=== PATIENT | female | born 1940 | race Caucasian/White ===

== ENCOUNTER → 2018-08-23 17:17 | Outpatient (CLI) | payer MEDICARE, OTHER, SELFPAY ==
--- NOTE | 2018-08-23 18:15 | MRI_ITS ---
STUDY: MRI LUMBAR SPINE WITHOUT CONTRAST REASON FOR EXAM: Female, 78 years old. Back pain x3 years. No relief with epidural injections. TECHNIQUE: Standardized fat and water weighted pulse sequences were obtained in the sagittal and axial planes. COMPARISON: 07/14/2016. FINDINGS: T10-T11: (Sagittal only). Schmorl's nodes in the vertebral endplates. Minimal anterior wedging of T11 superior endplates may be developmental or from remote injury. Mild disc space height narrowing. No ventral extradural defect. Normal central canal and bilateral intervertebral neural foramina. T11-T12: (Sagittal only). Normal endplates. Normal disc height and morphology. No ventral extradural defect. Normal central canal and bilateral intervertebral neural foramina. T12-L1: (Sagittal only). Normal endplates. Normal disc height. Small midline ventral extradural defect is small posterior bulging disc. Normal central canal and bilateral intervertebral neural foramina. Normal lumbar lordosis. There is no substantial scoliosis. Normal conus medullaris that terminates at the T12-L1 disc level. L1-2: Normal endplates. Minimal disc space height narrowing. Small midline ventral extradural defect is small posterior bulging disc. Mild central canal stenosis with an AP canal diameter of 9.5 mm. Normal bilateral lateral recesses. Mild degenerative facet arthropathy. Normal bilateral intervertebral neural foramina. L2-3: Normal endplates. Mild disc space height narrowing. Midline ventral extradural defect is small posterior bulging disc. Mild central canal stenosis. The AP canal diameter is 10 mm. Normal bilateral lateral recesses. Mild asymmetric degenerative facet arthropathy. Left posterior ligamentum flavum hypertrophy. Normal bilateral intervertebral neural foramina. L3-4: Normal endplates. Moderate disc space height narrowing. Midline ventral extradural defect is small posterior annular bulging disc. Pronounced central canal stenosis with an AP canal diameter of 4 mm. Normal bilateral lateral recesses. Mild bilateral degenerative facet arthropathy. Normal bilateral intervertebral neural foramina. L4-5: Normal endplates. Moderate pronounced disc space height narrowing and new Schmorl's nodes in the vertebral endplates. Grade 1 degenerative anterolisthesis of L4 on L5 is new. Small posterior midline cephalad disc protrusion behind the L4 vertebral body is new. Mild to moderate central canal stenosis with an AP canal diameter of 8 mm. Pronounced left degenerative facet hypertrophy. Moderate right degenerative facet arthropathy. Prominent elliptical cyst underneath the left posterior ligamentum flavum measures 1.3 x 0.6 cm (series 5, image 9; series 2, image 7; series 4, image 7). Moderate stenosis of the right intervertebral neural foramen is a new finding. Mild stenosis of the left intervertebral neural foramen. L5-S1: Normal endplates. Mild disc space height narrowing. Normal tapered caudal termination of the central canal. Postsurgical absence of the spinous process and lamina. Normal bilateral lateral recesses. Normal facet joints. Normal bilateral intervertebral neural foramina. Normal visualized sacral ala. Normal visualized paraspinous soft tissue structures. MRI/Spine Lumbar (Routine) IMPRESSION: 1. Severe central canal stenosis at L3-L4 disc level with small posterior annular bulging disc and mild bilateral degenerative facet arthropathy. 2. 1.3 x 0.6 cm elliptical cyst underneath the left posterior ligamentum flavum just below the L4-L5 disc level. This is secondary to progression of left degenerative facet arthropathy and new grade 1 degenerative anterolisthesis of L4 on L5. This is causing mild to moderate central canal stenosis and moderate stenosis of the left lateral recesses. Additionally small posterior splenic midline cephalad disc protrusion behind the lower L4 vertebral body. These are new findings since 07/14/2016. 3. Mild central canal stenosis at L2-L3 disc level with small posterior bulging disc. 4. Mild central canal stenosis at the L1-L2 disc level and small posterior bulging disc. 5. No MRI evidence of lumbar extruded disc fragment. 6. No other additional findings or changes when compared to 07/14/2016. Electronically Signed: Dk Fagan MD at 16:06 EST , Service support ,
== END ==
PROVIDERS: Family Provider Family Medicine; PCP Family Medicine; Referring Provider Anesthesiology Pain Medicine; Visit Provider Anesthesiology Pain Medicine
DX: M54.9 Dorsalgia, unspecified (principal); M79.606 Pain in leg, unspecified
CPT/HCPCS: 72148

== ENCOUNTER → 2018-12-12 | Outpatient (CLI) | payer MEDICARE, OTHER, SELFPAY ==
--- NOTE | 2018-12-12 10:35 | RAD_ITS ---
STUDY: X-RAY - LUMBOSACRAL SPINE REASON FOR EXAM: Female, 78 years old. Back pain. TECHNIQUE: 6 view(s) of the lumbosacral spine were obtained. COMPARISON: None FINDINGS: There is a grade 1 degenerative listhesis at L4-L5. Otherwise alignment are anatomic with preservation of the lumbar lordosis. No lysis is identified on bilateral oblique views. There is gradual inferior lumbar left degenerative scoliosis with a mild associated rotatory component. Alignments appear stable on flexion and extension versus neutral lateral view. Fairly significant facet arthrosis is identified involving L3 through and including S1. There is minimal diffuse lumbar spondylosis. However, there is moderate spondylosis involving the visualized inferior thoracic vertebrae. There is moderate to severe at T10-T11 degenerative disc disease. There is mild L4-L5 degenerative disc disease. There is no evident acute osseous abnormality. Normal visualized soft tissue structures. RAD/L/S Spine Comp/w Bending Views IMPRESSION: Single level of degenerative grade 1 listhesis at L4-L5. No lysis identified on the submitted bilateral oblique views. Facet arthrosis, degenerative scoliosis, spondylosis and degenerative disc disease as discussed above. Electronically Signed: Kenji Enriquez MD at 12:47 EDT , Service support ,
== END | disposition home or self-care (01) ==
LOC: HPRAD 10:34
PROVIDERS: Family Provider Family Medicine; PCP Family Medicine; Referring Provider Orthopaedic Surgery; Visit Provider Orthopaedic Surgery
DX: M54.5 Low back pain (principal)
CPT/HCPCS: 72114

== ENCOUNTER 2020-08-01 06:25 | Day surgery (SDC) | payer MEDICARE, OTHER, SELFPAY ==
[2020-08-01 07:07] VITALS: BP 148/58; PULSE 78; RESP 16; TEMP 37.3; O2SAT 96; BMI 30.7
[2020-08-01] MEDS: Lactated Ringers 1,000 ML 100 ML IV (07:16)
--- NOTE | 2020-08-01 08:20 | RAD_ITS ---
PROCEDURE: Spinal cord stimulator insertion. DATE OF EXAMINATION: 08/01/2020 INDICATION: Female, 80 years old. Chronic back pain. FLUOROSCOPY TIME (if supplied): (8 minutes and 27 seconds) minutes/seconds. 2 images were obtained. Intraoperative imaging provided for insertion of the spinal cord stimulator. The tip of the electrode is at the T7-T8 level. RAD/Thoracic Spine 2 Views IMPRESSION: Intraoperative imaging provided for spinal cord stimulator. Electronically Signed: Wilman Bello, at 14:15 EST , Service support ,
[2020-08-01] MEDS: Bupiv/Epi 0.25% 30 ML Vial (08:48)
[2020-08-01] MEDS: Lidocaine 0.5% (50 ml) 50 ML Vial (08:48)
[2020-08-01 10:15] VITALS: BP 148/58; BP 156/71; PULSE 77; RESP 16; TEMP 36.3; O2SAT 97
[2020-08-01 10:30] VITALS: BP 148/58; BP 153/70; PULSE 70; RESP 16; O2SAT 94
[2020-08-01 10:45] VITALS: BP 148/58; BP 155/66; PULSE 65; RESP 16; O2SAT 100
[2020-08-01 11:00] VITALS: BP 148/58; BP 160/70; PULSE 65; RESP 16; TEMP 36.1; O2SAT 96
[2020-08-01 12:06] VITALS: BP 141/66; BP 148/58; PULSE 69; RESP 16; TEMP 36.7; O2SAT 95
== END 2020-08-01 12:10 | disposition home or self-care (01) ==
LOC: SDC 06:25 → AC 06:26
PROVIDERS: PCP Internal Medicine; Referring Provider Anesthesiology Pain Medicine; Visit Provider Anesthesiology Pain Medicine
PROC: (CPT 63685; principal; 2020-08-01 08:05)
DX: M51.17 Intervertebral disc disorders with radiculopathy, lumbosacral region (principal); G89.29 Other chronic pain; M54.5 Low back pain; M96.1 Postlaminectomy syndrome, not elsewhere classified; I10 Essential (primary) hypertension; G25.81 Restless legs syndrome; E78.00 Pure hypercholesterolemia, unspecified; Z79.899 Other long term (current) drug therapy; Z20.828 Contact with and (suspected) exposure to other viral communicable diseases
CPT/HCPCS: 01936; 63650 ×2; 72070; 76000; 87426; C1713; C1778; C9803; J7120; J0610; J2405; J3490

== ENCOUNTER → 2022-03-04 | Outpatient (CLI) | payer MEDICARE, OTHER, SELFPAY ==
--- NOTE | 2022-03-04 14:00 | RAD_ITS ---
STUDY: X-RAY - LEFT KNEE REASON FOR EXAM: Female, 82 years old. Knee pain. TECHNIQUE: 2 view(s) of the knee. COMPARISON: None. FINDINGS: Osteopenia. Moderate arthrosis of the medial and lateral femorotibial compartments with osteophytes. Mild arthrosis of the patellofemoral compartment with small osteophytes. Small suprapatellar joint effusion with at least one intra-articular osteochondral body projected laterally measuring approximately 8 mm in widest diameter. The soft tissue structures are otherwise unremarkable. RAD/Knee 1 or 2 Views IMPRESSION: Osteopenia with tricompartmental arthrosis. Small joint effusion with 8 mm in diameter intra-articular osteochondral body as described. No acute abnormality, chondrocalcinosis or erosive changes. Electronically Signed: Nathanael Ribeiro MD at 9:51 EDT ,
== END | disposition home or self-care (01) ==
LOC: RAD 13:57
PROVIDERS: PCP Internal Medicine; Referring Provider Anesthesiology Pain Medicine; Visit Provider Anesthesiology Pain Medicine
DX: M17.12 Unilateral primary osteoarthritis, left knee (principal)
CPT/HCPCS: 73560

== ENCOUNTER → 2022-08-11 | Outpatient (CLI) | payer MEDICARE, OTHER, SELFPAY ==
--- NOTE | 2022-08-11 10:48 | MRI_ITS ---
STUDY: MRI LUMBAR SPINE WITHOUT CONTRAST REASON FOR EXAM: Female, 82 years old. RADICULOPATHY pain low back and bilat legs, 2 prev lumbar surgeries, and spinal cord stimulator TECHNIQUE: Standardized fat and water weighted pulse sequences were obtained in the sagittal and axial planes. COMPARISON: X-ray the lumbar spine dated DECEMBER 12, 2018. MRI of the lumbar spine dated August 23, 2018. FINDINGS: Normal lumbar lordosis. There is a levoscoliosis of the lumbar spine. Normal conus medullaris that terminates at the L1 level. No marrow edema or fractures or compression deformities are present. T12-L1: Diffuse disc desiccation with mild disc space narrowing and mild annular bulging. Mild facet joint hypertrophy. Mild anterior endplate spurring. Normal central canal and bilateral lateral recesses. Normal bilateral intervertebral neural foramina. L1-2: Diffuse disc desiccation with mild disc space narrowing and mild annular bulging. Mild facet joint hypertrophy. Mild anterior endplate spurring. Normal central canal and bilateral lateral recesses. Normal bilateral intervertebral neural foramina. L2-3: Diffuse disc desiccation with mild posterior disc space narrowing but no bulging or herniation of the disc. Mild facet joint hypertrophy. Minimal retrolisthesis less than 2 mm. Mild anterior endplate spurring. Normal central canal and bilateral lateral recesses. Normal bilateral intervertebral neural foramina. L3-4: Diffuse disc desiccation with moderate disc space narrowing and a diffuse disc bulge. Mild anterior endplate spurring. Mild to moderate central canal stenosis primarily due to moderate facet joint and ligamenta flava hypertrophy. Mild bilateral foraminal stenosis. L4-5: Right chronic L4 pars interarticularis defect with anterolisthesis of L4 and L5 of 8.1 mm. Moderate to severe right foraminal stenosis with nerve root compression is also present. Moderate left foraminal stenosis with nerve root compression. Moderate bilateral facet joint hypertrophy and degeneration. Severe disc space narrowing with diffuse disc bulging. Small to moderate size Schmorl''s node and mild endplate spurring and MODIC endplate degenerative signal. Severe central canal stenosis is present primarily due to moderate to severe facet joint hypertrophy. L5-S1: Posterior surgical decompressive defect with overlying scarring in the soft tissues. Diffuse disc desiccation with mild disc space narrowing and a shallow left paracentral disc protrusion. Mild left facet joint hypertrophy. Normal bilateral intervertebral neural foramina. Normal visualized sacral ala. Normal visualized paraspinous soft tissue structures. MRI/Spine Lumbar (Routine) IMPRESSION: 1. Multilevel degenerative changes, as described above. 2. Severe central canal stenosis at L4-L5 3. 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 Moderate to severe bilateral foraminal stenosis with nerve root compression at L4-L5 Electronically Signed: Hesham Lemus MD at 11:18 EST ,
== END | disposition home or self-care (01) ==
LOC: MRI 10:42
PROVIDERS: PCP Internal Medicine; Referring Provider Anesthesiology Pain Medicine; Visit Provider Anesthesiology Pain Medicine
DX: M54.16 Radiculopathy, lumbar region (principal)
CPT/HCPCS: 72148

== ENCOUNTER → 2023-06-02 | Outpatient (CLI) | payer MEDICARE, OTHER, SELFPAY ==
--- NOTE | 2023-06-02 17:56 | RAD_ITS ---
EXAM: XR BILATERAL HIPS WITH PELVIS WHEN PERFORMED, 2 VIEWS CLINICAL INDICATION: PAIN TECHNIQUE: Frontal view of the bilateral hips with pelvis when performed. COMPARISON: No relevant prior studies available. FINDINGS: BONES/JOINTS: Joint spaces are maintained. Sacroiliac joint is unremarkable. No widening of the pubic symphysis. No acute or healing fracture or malalignment. No osteonecrosis. No other unusual lytic or sclerotic lesions of bone. SOFT TISSUES: Soft tissues are normal. No soft tissue swelling or gas. VASCULATURE: Multiple phlebolith in the pelvis. RAD/Hips B/L min 2 views w/ Pelvis IMPRESSION: 1. No acute osseous abnormalities or malalignment. 2. No findings to explain pain. Electronically Signed: Boubacar Sauceda MD at 4:40 EDT ,
== END | disposition home or self-care (01) ==
LOC: RAD 17:52
PROVIDERS: PCP Internal Medicine; Visit Provider Anesthesiology Pain Medicine
DX: M25.551 Pain in right hip (principal); M25.552 Pain in left hip
CPT/HCPCS: 73521

== ENCOUNTER → 2024-01-06 | Outpatient (CLI) | payer MEDICARE, OTHER, SELFPAY ==
--- NOTE | 2024-01-06 15:34 | MRI_ITS ---
STUDY: MRI LUMBAR SPINE WITHOUT CONTRAST REASON FOR EXAM: Female, 83 years old. Postlaminectomy syndrome, not elsewhere classified TECHNIQUE: Standardized fat and water weighted pulse sequences were obtained in the sagittal and axial planes. COMPARISON: None FINDINGS: T12-L1: Normal endplates. Narrowed disc space with desiccation of the disc and small central disc protrusion. Normal bilateral facet joints. Mild narrowing of the central canal. Normal bilateral lateral recesses. Normal bilateral intervertebral neural foramina. Normal lumbar lordosis. There is no substantial scoliosis. Normal conus medullaris that terminates at T12-L1 L1-2: Normal endplates. Narrowed disc space with desiccation of disc and mild annular bulge.. Mild facet arthropathy and thickening of ligamenta flava. Normal central canal and bilateral lateral recesses. Moderate bilateral neural foraminal encroachment. . L2-3:: Normal endplates. Normal disc height, desiccation and minor annular bulge. Normal bilateral facet joints. Normal central canal and bilateral lateral recesses. Mild bilateral neural foraminal encroachment L3-4: Normal endplates. Narrowed disc space height with desiccation of the disc and minor annular bulge. Facet arthropathy and thickening of ligamenta flava. Mild narrowing central canal and moderate bilateral lateral recess stenosis.. Severe bilateral neural foraminal stenosis exaggerated by shortened pedicles. L4-5: Grade 1 spondylolisthesis. Narrowed disc space with mild bulging disc osteophyte complex and right foraminal disc protrusion. Moderate narrowing of central canal and severe bilateral lateral recess stenosis and moderate to severe narrowing of the left nerve root foramen and severe narrowing on the right exaggerated by shortened pedicles. L5-S1: Postop change status post bilateral laminectomy Normal endplates. Normal disc height, desiccation and normal morphology. Facet arthropathy.. Mildly narrowed central canal due to soft tissue thickening posteriorly. Bilateral lateral recesses. Normal bilateral intervertebral neural foramina. Normal visualized sacral ala. Normal visualized paraspinous soft tissue structures. MRI/Spine Lumbar (Routine) IMPRESSION: No evidence for acute fracture or other significant bony pathology. Postop changes at L5-S1 status post bilateral laminectomy Spondylosis and multilevel spinal stenosis secondary to disc disease and bony hypertrophy most severe at L4-5 greater on the right and L3-4 exaggerated by shortened pedicles Electronically Signed: Larry Avalos MD at 17:35 EDT ,
== END | disposition home or self-care (01) ==
LOC: MRI 15:28
PROVIDERS: PCP Internal Medicine; Referring Provider Anesthesiology Pain Medicine; Visit Provider Anesthesiology Pain Medicine
DX: M54.18 Radiculopathy, sacral and sacrococcygeal region (principal); M96.1 Postlaminectomy syndrome, not elsewhere classified
CPT/HCPCS: 72148

== ENCOUNTER 2024-04-21 10:06 | Emergency (ER) | payer MEDICARE, OTHER, SELFPAY ==
[2024-04-21 10:06] VITALS: BP 136/75; PULSE 77; RESP 16; TEMP 36.3; O2SAT 96; BMI 27.1
--- NOTE | 2024-04-21 10:21 | RAD_ITS ---
INDICATION: swelling EXAMINATION/TECHNIQUE: X-RAY - LEFT XR Foot Min 3 Views 3 VIEWS COMPARISON: No relevant prior comparison study available FINDINGS: SOFT TISSUES: No soft tissue swelling or gas. No radiopaque foreign body. BONES/JOINTS: No acute fracture or subluxation.. Very small plantar calcaneal spur. Preservation of the joint space.. No sclerotic or destructive changes observed. RAD/Foot min 3 Views IMPRESSION: No evidence of acute fracture no evidence of acute fracture. Electronically Signed: Umesh Jang MD at 11:19 EDT ,
--- NOTE | 2024-04-21 10:21 | ED.VIS.LOWEX ---
HPI History of Present Illness Chief Complaint: Lower Extremity Injury Informant: patient and family Narrative Narrative: 84-year-old female presenting to the emergency room with left foot hematoma. Patient states she woke this morning went to put on her shoes and socks and noticed a large bruise on the dorsum of her foot. She does not recall any injuries. She notes she has chronic back pain and has paresthesias in the toes bilaterally. She denies any antiplatelet or anticoagulants. She denies any ankle symptoms. She does not have bruising anywhere else. She does note the bleeding from the gums when she brushes her teeth. No known blood dyscrasias. PFSH PFSH Home Medications ?Medication ?Instructions ?Recorded ?Last Taken ?Type gabapentin 400 mg capsule 400 mg PO QHS pain 06/05/16 Unknown History lisinopril 10 0.5 tab PO DAILY htn 06/05/16 Unknown History mg-hydrochlorothiazide 12.5 mg tablet simvastatin 20 mg tablet 20 mg PO QHS cholesterol 06/05/16 Unknown History ibuprofen 200 mg capsule 200 mg PO PRN PRN pain 07/29/20 Unknown History Allergy/AdvReac Type Severity Reaction Status Date / Time No Known Allergies Allergy Verified 04/21/24 10:06 Social History Smoking Status: Never smoker ROS ROS ED Constitutional Constitutional ED: Denies chills or weight loss Eyes Eyes: Denies change in vision or diplopia ENT ENT ED: Denies ear pain, rhinorrhea or sore throat Cardiovascular Cardiovascular: Denies chest pain, orthopnea, palpitations or racing heartbeat Respiratory/Chest Respiratory/Chest: Denies cough, dyspnea or orthopnea Gastrointestinal Gastrointestinal: Denies abdominal pain, diarrhea, nausea or vomiting Genitourinary Genitourinary ED: Denies dysuria, hematuria or urinary frequency Musculoskeletal Musculoskeletal: Reports other Details: Left foot hematoma ; Denies arthralgias or myalgias Integumentary Denies abscess or rash Neurologic Neurologic: Denies headache(s) or weakness Psychiatric Psychiatric: Denies anxiety, depression, suicidal ideation or suicidal thoughts Endocrine Endocrinology: Denies polydipsia, polyphagia or polyuria Allergic/Immunologic Allergic/Immunologic ED: Denies mouth swelling, tongue swelling or urticaria EXAM Physical Exam Const Vital Signs: 04/21/24 10:06 Temperature 97.4 F L Temperature Source Temporal Pulse Rate 77 Respiratory Rate 16 Blood Pressure 136/75 H Blood Pressure Mean 95 Pulse Ox 96 Oxygen Delivery Method Room Air Positive well nourished and well developed General Appearance ED: well developed and NAD HEENT Reports normocephalic, head/scalp atraumatic and moist mucous membranes Eyes PERRL and EOMs intact bilaterally Neck no lymphadenopathy, supple and no JVD Resp normal respiratory effort and clear to auscultation bilaterally Cardio regular rate, regular rhythm and no murmurs GI normal to inspection, nondistended, normoactive bowel sounds and non-tender Palpation: soft Back/Spine no CVA tenderness and normal ROM Extremity Extremity Narrative: Dorsum of left midfoot is a large purple hematoma. Distally the toes appear normal with no swelling or ecchymosis normal capillary refill. Strong posterior tibial pulse. No fibular head tibial shaft or ankle tenderness/swelling. General Extremety ED: Negative for edema General Extremity: Negative for edema Neuro oriented x3 and CN's II-XII intact bilaterally Sensorium / Orientation: alert Motor Exam: strength 5/5 throughout Psych mental status grossly normal Mood & Affect: Negative for depressed or tearful Skin no rashes or lesions noted and no wounds Skin Narrative: No significant bruising noted on elsewhere on body MDM MDM MDM Narrative Medical decision making narrative: Differential diagnosis includes fracture sprain strain rupture of blood vessel hematoma contusion neurovascular compromise My independent interpretation of plain films of the left foot is no obvious fracture. Dorsal soft tissue swelling noted. Patient will be treated conservatively would recommend ice. Bar wrap today. She should expect slow resolution of symptoms. I suspect that some mild trauma may have ruptured a vein on the dorsum of her foot. Patient is comfortable with this plan follow-up as needed return if worsening History & Record Review Discussion w/independent historian: Patient and Family Radiography Diagnostic Testing: Clinical Impression(s) from Imaging Studies Foot X-Ray 04/21/24 10:21 IMPRESSION: No evidence of acute fracture no evidence of acute fracture. Electronically Signed: Umesh Jang MD at 11:19 EDT , Discharge Plan Triage Chief Complaint: Lower Extremity Injury ED Provider: Neal Valenzuela Dx/Rx/DC Orders Clinical Impression: Hematoma of left foot Instructions: ED Hematoma Prescriptions: No Action gabapentin 400 MG capsule 400 mg PO QHS simvastatin 20 MG tablet 20 mg PO QHS lisinopril-hydrochlorothiazide 1 TABLET tablet 0.5 tab PO DAILY ibuprofen 200 MG capsule 200 mg PO PRN PRN (Reason: pain) Primary Care Provider: Raheem Luevano Referrals: Raheem Luevano MD [Primary Care Provider] - As Needed Activity Restrictions/Additional Instructions: I would recommend ice today. This will most likely take 2 to 3 weeks to fully resolve. You can expect to have the coloring of the hematoma change. You may begin to notice some swelling or some bruising extending over the sides and down towards the toes. Print Language: Slovak Disposition Disposition: Home, Self Care
[2024-04-21 11:32] VITALS: BP 144/74; PULSE 68; RESP 16; TEMP 36.7; O2SAT 96
== END 2024-04-21 11:33 | disposition home or self-care (01) ==
LOC: ED 11:15
PROVIDERS: Emergency Provider Emergency Medicine; PCP Internal Medicine; Visit Provider Emergency Medicine
DX: S90.32XA Contusion of left foot, initial encounter (principal); G89.29 Other chronic pain; M54.9 Dorsalgia, unspecified; R20.2 Paresthesia of skin; X58.XXXA Exposure to other specified factors, initial encounter
CPT/HCPCS: 73630; 99282

== ENCOUNTER 2024-10-20 16:04 | Emergency (ER) | payer MEDICARE, OTHER, SELFPAY ==
[2024-10-20 16:05] VITALS: BP 148/76; PULSE 86; RESP 18; TEMP 35.7; O2SAT 97
--- NOTE | 2024-10-20 16:23 | ED.VIS.LOWEX ---
HPI History of Present Illness HPI Narrative: Patient presents with a right ankle injury that occurred today. Patient states she was walking and her right leg gave out. Patient states she fell down 1-2 steps. Patient denies any head injury or loss of consciousness. Patient states her pain is worse with weightbearing. Patient describes it as aching. Patient states her ankle feels weak but she is able to move her ankle. Patient denies any paresthesias. Patient denies any popping or snapping sensation. Patient denies any other injuries. Chief Complaint: Lower Extremity Injury Informant: patient Occured/Mechanism Mechanism/Context: Yes fall Onset/Context/Timing Onset: Today Context: Sudden Onset Timing: Continuous Quality of Pain: Aching Location: Right ankle Worsened by: Weightbearing Relieved by: Nothing Associated Symptoms Associated Symptoms: Positive for Weakness; Negative for Parasthesia or Loss of Funtion [facility] Medical History (Updated 10/20/24 @ 18:[address] Barrera Balderas, ) Chronic back pain Home Medications ?Medication ?Instructions ?Recorded ?Last Taken ?Type gabapentin 400 mg capsule 400 mg PO QHS pain 06/05/16 Unknown History lisinopril 10 0.5 tab PO DAILY htn 06/05/16 Unknown History mg-hydrochlorothiazide 12.5 mg tablet simvastatin 20 mg tablet 20 mg PO QHS cholesterol 06/05/16 Unknown History ibuprofen 200 mg capsule 200 mg PO PRN PRN pain 07/29/20 Unknown History hydrocodone-acetaminophen 5-325mg 1 tab PO Q6H PRN PRN Pain 3 days 10/20/24 Unknown Rx 5mg-325mg #10 TABLETS Allergy/AdvReac Type Severity Reaction Status Date / Time No Known Allergies Allergy Verified 10/20/24 16:05 Surgical History (Updated 10/20/24 @ 16:[address] Barrera Balderas, DO) Hx of neck surgery History of back surgery S/P insertion of spinal cord stimulator Hx of cholecystectomy Social History Smoking Status: Never smoker ROS ROS ED Constitutional Constitutional ED: Denies chills or fever(s) Eyes Eyes: Denies blurry vision or change in vision ENT ENT ED: Denies rhinorrhea or sore throat Cardiovascular Cardiovascular: Denies chest pain or palpitations Respiratory/Chest Respiratory/Chest: Denies cough or dyspnea Gastrointestinal Gastrointestinal: Denies nausea or vomiting Genitourinary Genitourinary ED: Denies dysuria or hematuria Musculoskeletal Musculoskeletal: Reports back pain; Denies neck pain Integumentary Denies abscess or rash Neurologic Neurologic: Denies headache(s) or weakness Allergic/Immunologic Allergic/Immunologic ED: Denies mouth swelling or urticaria EXAM Physical Exam Const Vital Signs: 10/20/24 16:05 Temperature 96.2 F L Temperature Source Temporal Pulse Rate 86 Respiratory Rate 18 Blood Pressure 148/76 H Blood Pressure Mean 100 Pulse Ox 97 Oxygen Delivery Method Room Air Positive well nourished and well developed General Appearance ED: well developed and NAD HEENT Reports moist mucous membranes Neck full ROM and supple Extremity Extremity Narrative: There is tenderness and mild edema and ecchymosis over the lateral malleolus of the right ankle. There is no obvious deformity noted. There is no bony crepitance or step-off. There is no tenderness over the proximal fibula. There is no tenderness over the fifth metatarsal. Range of motion was slightly limited in all motions of the right ankle secondary to pain. Pedal pulses are equal bilaterally. Sensation was intact to light touch in all digits. Capillary refill was less than 2 seconds in all digits. Neuro oriented x3, CN's II-XII intact bilaterally, moves all extremities and no sensory deficits noted Sensorium / Orientation: alert Motor Exam: strength 5/5 throughout Psych mental status grossly normal MDM MDM MDM Narrative Medical decision making narrative: Differential diagnosis includes fracture, sprain, and contusion. X-rays of the right ankle will be obtained to assess for fracture. Radiography Diagnostic Testing: Clinical Impression(s) from Imaging Studies Ankle X-Ray 10/20/24 16:31 IMPRESSION: Nondisplaced spiral fracture through the distal fibula. Reading Location: [facility] X-rays of the right ankle were obtained. There are 3 views. On my independent interpretation, there is a nondisplaced spiral fracture through the distal fibula. Radiologist also interpreted the x-ray and agrees. Treatment and Re-Evaluation Narrative: Patient was advised of her findings. Patient was given a dose of Wilmot here. Case was discussed with Dr. Winters. He recommended placing the patient in a boot orthosis. He recommended to have the patient elevate her foot. Will follow-up with the patient in the outpatient office. Patient was given a prescription for a short course of Wilmot. Patient and family understood and were agreeable with plan. All questions were answered. Discharge Plan Triage Chief Complaint: Lower Extremity Injury ED Provider: Barrera Balderas Dx/Rx/DC Orders Clinical Impression: Fracture of distal end of right fibula, Fall Instructions: ED Ankle Fracture, Distal Fibula Prescriptions: New hydrocodone-acetaminophen 5-325 mg tablet 1 tab PO Q6H PRN PRN (Reason: Pain) 3 Days Qty: 10 0RF No Action gabapentin 400 MG capsule 400 mg PO QHS simvastatin 20 MG tablet 20 mg PO QHS lisinopril-hydrochlorothiazide 1 TABLET tablet 0.5 tab PO DAILY ibuprofen 200 MG capsule 200 mg PO PRN PRN (Reason: pain) Primary Care Provider: Raheem Luevano Referrals: Larry Winters DPM [Med Staff - Active Staff] - 3-5 Days Raheem Luevano MD [Primary Care Provider] - Activity Restrictions/Additional Instructions: Keep your leg elevated as much as possible. Use ice to the area. Print Language: [place] Disposition Disposition: Home, Self Care
--- NOTE | 2024-10-20 16:31 | RAD_ITS ---
PROCEDURE: ANKLE MIN 3 VIEWS REASON FOR EXAM: Injury/pain TECHNIQUE: 3 views of the right ankle COMPARISON: None FINDINGS: Spiral fracture through the distal fibula. No significant displacement. Mortise appears intact. No effusion. Soft tissues are unremarkable. RAD/Ankle min 3 Views IMPRESSION: Nondisplaced spiral fracture through the distal fibula. Reading Location: [facility]
[2024-10-20] MEDS: HYDROcodone Bitartrate/Apap 5/325 Tablet PO (18:14)
== END 2024-10-20 18:26 | disposition home or self-care (01) ==
PROVIDERS: Emergency Provider Emergency Medicine; PCP Internal Medicine; Visit Provider Emergency Medicine
DX: S82.444A Nondisplaced spiral fracture of shaft of right fibula, initial encounter for closed fracture (principal); W10.9XXA Fall (on) (from) unspecified stairs and steps, initial encounter
CPT/HCPCS: 73610; 99283

== ENCOUNTER → 2024-10-27 | Outpatient (CLI) | payer MEDICARE, OTHER, SELFPAY ==
[2024-10-27 12:24] LABS: Anion Gap 13 (5-15); BUN 22 mg/dL (4-19); BUN/Creat Ratio 27.6 RATIO (10-20); Carbon Dioxide 24.6 mmol/L (21.0-32.0); Chloride 99 mmol/L (98-108); Creatinine, Serum 0.81 mg/dL (0.70-1.20); EST Glomerular Filtration Rate 71 (>60); Glucose 98 mg/dL (70-99); Sodium Level 137 mmol/L (133-145)
[2024-10-27 12:27] LABS: Vitamin D,25 Hydroxy 31.3 ng/mL (30-100)
== END | disposition home or self-care (01) ==
LOC: LAB 09:39
PROVIDERS: PCP Internal Medicine; Referring Provider Podiatrist; Visit Provider Podiatrist
DX: M25.571 Pain in right ankle and joints of right foot (principal); M89.9 Disorder of bone, unspecified
CPT/HCPCS: 36415; 80048; 82306

== ENCOUNTER → 2025-05-27 | Outpatient (CLI) | payer MEDICARE, OTHER, SELFPAY ==
--- NOTE | 2025-05-27 12:59 | RAD_ITS ---
PROCEDURE: CERV SPINE 2 OR 3 VIEWS 05/27/2025 REASON FOR EXAM: DDD TECHNIQUE: Procedure Code: RADSPCL Modality: DX Procedure: CERV SPINE 2 OR 3 VIEWS COMPARISON: None. FINDINGS: Status post ACDF, C3 through C5. Prior fusion C6-C7. There are no complications evident. RAD/Cerv Spine 2 or 3 Views IMPRESSION: As per findings. Reading Location: [id number]
== END | disposition home or self-care (01) ==
LOC: RAD 12:52
PROVIDERS: PCP Internal Medicine; Referring Provider Anesthesiology Pain Medicine; Visit Provider Anesthesiology Pain Medicine
DX: M50.30 Other cervical disc degeneration, unspecified cervical region (principal)
CPT/HCPCS: 72040

== ENCOUNTER → 2025-07-09 | Outpatient (CLI) | payer MEDICARE, OTHER, SELFPAY ==
--- NOTE | 2025-07-09 09:55 | RAD_ITS ---
PROCEDURE: HIP, UNI W/ PELVIS 2-3 VIEWS 07/09/2025 REASON FOR EXAM: OA TECHNIQUE: Procedure Code: RAD Modality: DX Procedure: HIP, UNI W/ PELVIS 2-3 VIEWS Laterality: Right COMPARISON: None FINDINGS: The bony pelvis is intact. The SI joints are normal. There is moderate degenerative disc disease, L3-4 through L5-S1. There is a generator for an intrathecal stimulator in the left lower back projected over the left iliac wing. Single AP view of the left hip demonstrates no evidence of fracture or dislocation. There is no significant arthritis. The periarticular soft tissues are normal. AP and lateral views of the right hip demonstrate no evidence of fracture or dislocation. There is no significant arthritis. The periarticular soft tissues are normal. RAD/HIP, UNI W/ Pelvis 2-3 Views IMPRESSION: No significant arthritis of the right hip. Other findings as noted. Reading Location: [place] [id number]
== END | disposition home or self-care (01) ==
LOC: RAD 09:45
PROVIDERS: PCP Internal Medicine; Referring Provider Anesthesiology Pain Medicine; Visit Provider Anesthesiology Pain Medicine
DX: M16.11 Unilateral primary osteoarthritis, right hip (principal)
CPT/HCPCS: 73502